=== PATIENT | female | born 1960 | race Caucasian/White ===

== ENCOUNTER 2024-12-12 08:44 | Day surgery (SDC) | payer MEDICAID ==
[2024-12-09 14:28] LABS: Hemoglobin 12.9 g/dL (12.2-16.2)
[2024-12-09 14:32] LABS: Hematocrit 38.8 % (36.0-46.0); INR 1.04 (0.9-1.15); Mean Corpuscular Hemoglobin 25.9 pg (28.0-32.0); Mean Corpuscular Volume 78.2 fL (80.0-100.0); Nucleated Red Blood Cells % 0.3 %; Partial Thromboplastin Time 27.8 SEC (24.5-34.5); Prothrombin Time 11.0 sec (9.3-11.8)
[2024-12-09 14:43] LABS: Alanine Aminotransferase 16 U/L (7-40); Albumin 4.3 g/dL (3.2-4.8); Alkaline Phosphatase 114 U/L (46-116); Anion Gap 7 (5-15); BUN/Creatinine Ratio 12.0 (10.0-20.0); Calcium 9.1 mg/dL (8.7-10.4); Carbon Dioxide 29 mmol/L (20-31); Chloride 103 mmol/L (98-107); Potassium 4.6 mmol/L (3.5-5.1); Sodium 139 mmol/L (136-145); Total Protein 7.6 g/dL (5.7-8.2)
[2024-12-09 14:44] LABS: Bilirubin, Total 0.4 mg/dL (0.2-1.0)
[2024-12-09 14:45] LABS: Blood Urea Nitrogen 9 mg/dL (9-23); Glucose 120 mg/dL (74-106)
[~2024-12-12] VITALS: Ht 172.7 cm; Wt 124.3 kg
[~2024-12-12 08:44] MED LIST: ASPI81CH43; CETI10TA2 PO; CITA-77; EMPA1TAB3 PO; FAMO-68 PO; GLIP10TA9 PO; LEVO75TA6; METO25TA5; SIMV40TA18; TIRZ7.5I SC
[2024-12-12 09:30] VITALS: PULSE 88; RESP 18; O2SAT 100
[2024-12-12] MEDS: diphenhdrAMINE HCL 50 MG/1 ML VL ONE (09:34)
[2024-12-12] MEDS: fentaNYL CITRATE 100 MCG/2 ML VL ONE (09:34)
[2024-12-12] MEDS: MIDAZOLAM HCL 5 MG/ML-1ML VIAL ONE (09:34)
[2024-12-12] MEDS ORDERED: NALOXONE HCL 0.4 MG/ML VIAL ONE (09:35)
[2024-12-12] MEDS ORDERED: FLUMAZENIL 0.1 MG/ML INJ 10ML MDV IV ONE (09:35)
[2024-12-12] MEDS ORDERED: SODIUM CHLORIDE LOCK 10 ML ONE (09:35)
[2024-12-12 09:57] VITALS: PULSE 81; RESP 16; TEMP 97.1; O2SAT 95
[2024-12-12 10:20] VITALS: BP 128/68; PULSE 74; RESP 14; O2SAT 95
--- NOTE | 2024-12-12 12:56 | DVHOP2 ---
Operative Report DATE OF OPERATION: 12/12/24 PROCEDURE: Colonoscopy with hot snare polypectomy PREOPERATIVE INDICATION: The patient is a 64 -year-old female undergoing colonoscopy for surveillance with personal history of colon polyps POSTOPERATIVE DIAGNOSES: 1. 3 mm benign-appearing transverse colon polyp was seen and removed via hot snare polypectomy 2. There was a 2 mm benign-appearing descending colon polyp that was removed via hot snare polypectomy and retrieved with cold biopsy forceps 3. There was mild scattered diverticular disease 4. 1+ internal hemorrhoids otherwise normal examination up to the cecum PROCEDURE PERFORMED BY: David Sharp M.D. SCOPE: Olympus videocolonoscope. ASA CLASS: 2. PREOPERATIVE MEDICATIONS: Versed 3 mg, Fentanyl 75 mcg, Benadryl 50 mg PROCEDURE IN DETAIL: After obtaining an informed consent, the patient was placed on left lateral decubitus position. She was then sedated with the above medications. A rectal examination was performed that was normal. The colonoscope was then passed through the anus into the rectosigmoid and through the descending, transverse, and ascending colon up to the cecum with visualization of the appendiceal orifice, base of the cecum and the ileocecal valve. The colonoscope was then withdrawn. The distal 3-5 cm of the terminal ileum were normal No masses or colitis were seen. Patient had a 3 mm benign-appearing transverse colon polyp that was seen and removed by hot snare polypectomy There was a 2 mm benign-appearing descending colon polyp that was removed by hot snare polypectomy and the specimens were retrieved with a cold biopsy forceps There was mild scattered diverticular disease and on retroflexion 1+ internal hemorrhoids The patient tolerated the procedure well without difficulty. WITHDRAWAL TIME: 10 minutes QUALITY OF THE PREP: Leonore Bowel Prep score: 9. COMPLICATIONS : None SPECIMENS: Transverse Colon polyp Descending colon polyp DISPOSITION: Stable D/C to home PLAN: 1. Repeat colonoscopy base on biopsy result likely in 4-5 years 2. Resume GI soft diet advance as tolerated 3. Increase fluid and fiber intake 4. Outpatient follow up with me in 4-6 weeks to review results and discuss further management DAVID SHARP MD Dec 12, 2024 12:56
== END 2024-12-12 10:30 | disposition home or self-care (01) ==
LOC: GI 08:44
PROVIDERS: ATTEND Internal Medicine Gastroenterology
DX: K51.90 Ulcerative colitis, unspecified, without complications (principal); K63.5 Polyp of colon; K57.30 Diverticulosis of large intestine without perforation or abscess without bleeding; K64.0 First degree hemorrhoids; I10 Essential (primary) hypertension; E11.9 Type 2 diabetes mellitus without complications; Z79.899 Other long term (current) drug therapy; Z90.49 Acquired absence of other specified parts of digestive tract; Z86.0100 Personal history of colon polyps, unspecified
CPT/HCPCS: 36415; 45380; 45385; 80053; 82962; 85025; 85610; 85730; 88305; J1200; J2250; J3010; J7030